=== PATIENT | female | born 1965 | race Caucasian/White ===

== ENCOUNTER → 2016-07-11 | Outpatient (CLI) | payer BC ==
--- NOTE | 2016-07-11 18:28 | DI ---
HISTORY: Metromenorrhagia. TECHNIQUE: Sonographic images of the pelvis were obtained and submitted for interpretation. FINDINGS: The uterus measures 11.2 x 6.6 x 5.4 cm. The endometrium measures 13 mm in thickness. Th ere are nabothian cysts noted. The left ovary measures 2.0 x 2.8 x 3.0 cm. Normal arterial waveforms are noted within the left ovar y. There is a cystic-appearing lesion reminiscent of a follicle. There is a 3.7 x 1.5 x 3.5 cm hypoechoic lesion in the anterior wall of the uterus, that is suggestiv e of a fibroid. A right ovarian cyst is noted on the transabdominal exam. The right ovary measures 4.7 x 3.1 x 3.3 c m. However, on the transvaginal exam, this is not visualized. On the technology notes, normal arter ial waveforms are noted within the right ovary. IMPRESSION: 1. Nabothian cysts. 2. Right ovarian cyst noted on the transvaginal portion of the examination but not seen on the transv aginal exam.
== END ==
LOC: US 14:41
PROVIDERS: ATTEND Nurse Practitioner Family
DX: N92.1 Excessive and frequent menstruation with irregular cycle (principal); N83.291 Other ovarian cyst, right side; N88.8 Other specified noninflammatory disorders of cervix uteri
CPT/HCPCS: 76830; 76856

== ENCOUNTER → 2016-07-23 | Outpatient (CLI) | payer BC ==
[2016-07-23 17:14] LABS: BILIRUBIN,URINE NEGATIVE (NEG); CLARITY,URINE CLEAR (CLEAR); GLUCOSE, URINE (UA) NEGATIVE (NEG); LEUKOCYTE ESTERASE ,URINE SMALL (NEG); NITRATE,URINE POSITIVE (NEG); OCCULT BLOOD,URINE Trace-intact (NEG); PH,URINE 6.5 (5.0-8.5); PROTEIN,URINE NEGATIVE (NEG); UROBILINOGEN,URINE 0.2 mg/dL (0.2)
[2016-07-23 17:44] LABS: URINE SAMPLE TYPE VOIDED SPECIMEN
[2016-07-23 17:45] LABS: BACTERIA,URINE MANY
== END ==
LOC: MOB LAB 16:41
PROVIDERS: ATTEND Obstetrics & Gynecology
DX: R30.0 Dysuria (principal)
CPT/HCPCS: 81001; 87077; 87088; 87186

== ENCOUNTER → 2016-07-24 | Outpatient (CLI) | payer BC ==
--- NOTE | 2016-07-24 15:43 | DI ---
PELVIC ULTRASOUND, 07/24/2016 2:51 PM Clinical History: Cysts of both ovaries not well demonstrated on a previous study. Menorrhagia. Previous Exam: 07/11/2016. Both a transvaginal and transabdominal study was performed. Technique: Transabdominal scans are performed. The uterus is visualized and there is marked thickening of the endometrial stripe. It measures at amado st 25 mm in thickness. Both ovaries are well visualized. The right ovary measures 30 x 55 x 40 mm in snyzotiurv-VS-wzyloyvlnwvn measurements. There is a spherical simple cyst present that measures 25 mm in diameter. The left ovary is smaller and measures approximately 15 x 11 x 25 mm in vmvgujjyvl-DI-z ongitudinal measurements. The left ovarian cyst measures approximately 10 mm in diameter. There are n o fluid collections or masses. Readin. Marked thickening of the central uterine stripe. The central uterine stripe measures 25 mm. 2. Both ovaries are well visualized. There is a 25 mm cyst of the right ovary and a 10 mm cyst of th e left ovary.
== END ==
LOC: US 14:43
PROVIDERS: ATTEND Obstetrics & Gynecology
DX: N83.202 Unspecified ovarian cyst, left side (principal); N83.201 Unspecified ovarian cyst, right side
CPT/HCPCS: 76856

== ENCOUNTER 2016-07-31 07:23 | Observation (INO) | payer BC ==
[~2016-07-31 07:23] MED LIST: Acetaminophen 1000mg Inj 1,000 MG in Premix 1 BAG IV ONE; Acetaminophen 1000mg Inj 100 ML IV ONE; BUPIVACAINE 0.25% W/ EPI - 10 ML VIAL ONE; HYDROmorphone 2 MG/1 ML IVP PRN; LIDOCAINE W/ SODIUM BICARB 0.5 ML SYR ONE; Lactated Ringers 1,000 ML PRIMARY IV SCH; Lactated Ringers 2,000 ML PRIMARY IV ONE; NORMAL SALINE 10 ML SYRINGE FLUSH IVP PRN; ONDANSETRON 4 MG/2 ML VIAL IVP PRN; Ondansetron ODT Tab 8 MG TAB PO PRN; Prochlorperazine Edisylate Inj 10mg/2ml vial IVP PRN; Sodium Chloride 0.9% 100 ML IV ONE; fentaNYL Inj 100 MCG/2 ML VIAL IVP PRN
[2016-07-31] MEDS ORDERED: MIDAZOLAM 5 MG/1 ML ONE (07:26)
[2016-07-31] MEDS ORDERED: LIDOCAINE MPF 2% - 5 ML (20 MG/1 ML) ONE (07:27)
[2016-07-31] MEDS ORDERED: VECURONIUM BROMIDE 10 MG VIAL ONE (07:27)
[2016-07-31] MEDS ORDERED: KETAMINE 100 MG/1 ML - 5 ML ONE (07:27)
[2016-07-31] MEDS ORDERED: Sodium Chloride 0.9% vial 10 ML ONE (07:27)
[2016-07-31] MEDS ORDERED: fentaNYL Inj 250 MCG/5 ML VIAL ONE (07:27)
[2016-07-31] MEDS ORDERED: Opium-Belladonna 60-16.2mg 1 EACH SUPP.RECT RECTAL ONE (07:44)
[2016-07-31 08:07] LABS: BILIRUBIN,URINE SMALL (NEG); CLARITY,URINE CLEAR (CLEAR); GLUCOSE, URINE (UA) NEGATIVE (NEG); LEUKOCYTE ESTERASE ,URINE TRACE (NEG); NITRATE,URINE NEGATIVE (NEG); OCCULT BLOOD,URINE NEGATIVE (NEG); PH,URINE 6.5 (5.0-8.5); PROTEIN,URINE TRACE mg/dl (NEG); UROBILINOGEN,URINE 0.2 mg/dL (0.2)
[2016-07-31 08:10] LABS: URINE SAMPLE TYPE CLEAN CATCH URINE
[2016-07-31 08:17] LABS: HEMATOCRIT 35.1 % (37.0-47.0); HEMOGLOBIN 11.3 g/dL (12.0-16.0); RBC,URINE 0-3 /hpf; SQUAMOUS EPITHELIAL CELL,UR FEW; WBC,URINE 0-3
--- NOTE | 2016-07-31 08:46 | OB.OP.NOTE ---
Operative Report Surgeon: Juan A Tool/Die Maker: Calixto Puckett MD Anesthesia Type: General Anesthesia Provider: Lupis Barclay CRNA Surgery Date: 07/31/16 Preoperative Diagnosis: Menometrorrhagia. Endometrial hyperplasia-simple hyperplasia without atypia. Fibroid uterus. Dysmenorrhea. Bilateral ovarian cysts-simple ovarian cysts. Patient desires definitive management with a hysterectomy and BSO Postoperative Diagnosis: Same Procedure: Exam under anesthesia. Robotic-assisted laparoscopic hysterectomy and bilateral salpingo-oophorectomy. Cystoscopy Estimated Blood Loss (mL): 50 Fluids: 2100 mL LR. 50 mL urine Complications: None apparent Findings at Surgery: Slightly larger fibroid uterus Simple appearing right ovarian cyst about 3-4 cm-no evidence of rupture throughout the surgery and was removed intact Simple appearing left ovarian cyst about 1 cm-no evidence of rupture throughout the surgery and was removed intact The bladder was backfilled using methylene blue and saline and there was no evidence of incidental cystotomy. The bladder was intact and there was no spill of blue fluid A cystoscopy was performed and there was good spill of both ureters into the bladder. There was a good jet stream of urine bilaterally. There was a normal intravesical bubble at the dome of the bladder at cystoscopy. Indications for the Procedure: The patient is a 51-year-old 002 with menometrorrhagia, dysmenorrhea, simple endometrial hyperplasia without atypia, fibroid uterus, bilateral simple ovarian cysts who desires definitive management with hysterectomy and BSO. Description of Procedure: After the risk, benefits, alternatives and indications for a robotic-assisted laparoscopic hysterectomy and bilateral salpingo-oophorectomy and cystoscopy were discussed with the patient in detail, the consent form was signed in the clinic. The day of surgery we discussed the operation again and the patient still desired the surgery and desired definitive management with a hysterectomy and BSO for her menometrorrhagia, simple endometrial hyperplasia without atypia , fibroid uterus, dysmenorrhea, and bilateral simple ovarian cysts. The surgery was again reviewed with the patient. The patient stated that she was ready for the surgery. The patient was brought to the operating room. The patient was placed on the operatory table. The patient underwent general endotracheal anesthesia without complication. The patient was placed in the [facility] in the dorsal lithotomy position. The patient was then prepped and draped sterilely. A timeout was completed to document the proposed surgery and to document the correct patient. Documentation was completed and the procedures were identified and the patient was identified and all agreed. A Russell catheter was placed in the patient's urethra and into the bladder and the balloon was insufflated with fluid. A weighted speculum was placed in the patient's vagina posteriorly and a [place] was placed anteriorly and the cervix was visualized and grasped with a single- tooth tenaculum. The uterus was sounded to 9-1/2 cm. Therefore a 10 cm uterine manipulator tip was requested. With respect to the Donna ring, a medium Donna ring was requested secondary to the size of the cervix. The uterine manipulator was assembled and then the 10 cm tip was placed through the cervical cause and into the endometrial cavity. The balloon was insufflated. I then removed the single-tooth tenaculum and I placed the Donna ring around the cervix and adjusted the uterine manipulator into place. Gloves were then changed. Attention was then turned to the patient's abdomen and an infraumbilical incision was decided upon and this area was injected with local anesthetic. A infraumbilical vertical skin incision about 1-1/2+ centimeters in length was made. Perforating towel clamps were placed on either side of the incision to elevate the abdomen. Under direct visualization using the 8 mm camera, the infraumbilical trocar was placed. The CO2 gas was insufflated into the abdomen and the patient was then placed in steep Trendelenburg. The right lateral port was then placed. The area of placement was identified and a local anesthetic was used and injected into the area and then a 1 cm skin incision was made and then under direct visualization the trocar and sleeve was placed and then the trocar removed. The same was done for the left lateral port. The abdomen was examined including the liver. All appeared normal. There were no unusual appearances of bowel. The uterus was visualized and it was slightly enlarged. The camera was then removed and the robot was positioned into place. The #1 arm was placed on the right lateral port and the camera port was placed in the infraumbilical port and the #2 arm was placed in the left lateral port. The smoke evacuator tubing was hooked up to the right lateral port. The vessel sealer was placed in the #1 arm or right lateral port and the gyrus was placed in the #2 arm or left lateral port. Both instruments were positioned and maneuvered to the fundus of the uterus. I then went over to the Endosee console. Photographs were taken of the uterus and the left ovary with a smaller simple cyst and the right ovary with about a 3 -4 cm simple cyst-appearing cyst. I then identified the right IP and placed the vessel sealer around the IP and cauterized in [address] adjacent to each other and then closer to the ovary I cauterized again and then cut and then I continued to cauterize and cut using the vessel sealer along the mesial salpinx removing both the ovary and the fallopian tube. I was always away from the ureter or it appeared so. I then cauterized and then cut the round ligament. I then continued to skeletonize the vessels along the cervix and cauterized and cut them. I then switched instruments in #1 and #2 ports and I then identified the IP on the left side and cauterized in [address] and then cauterized again closer to the ovary and then cut and then continued to cauterize and cut along the mesial salpinx on the left side removing both the ovary and the fallopian tube on the left side. I was always away from the ureter or at least it appeared so. I then cauterized and then cut the round ligament on the left side and then I continued to skeletonize the vessels along the cervix and cauterized and cut them. Her did to make a bladder flap using the vessel sealer but then exchanged instruments. In the #2 arm I had the gyrus bipolar and in the #1 I had the monopolar scissors. I then created a bladder flap keeping in mind where the Donna ring was anteriorly. I then continued to skeletonize the vessels along the cervix on the right side. A small venous sinus tract was noted and there was a small amount of bleeding but hemostasis was allowed to occur easily. The vessels along the left side of the cervix were skeletonized and keeping in mind where the Donna ring was the vessels were bovied and cut and moved laterally on either side. My PROGRAM THERAPIST partner-Dr. Puckett-actually completed the skeletonization on the left and right side to ensure the vessels were lateral to where we would cut on the Donna ring. The vagina was then incised and the Donna ring was visualized after we insured that the bladder was far away from the incision site. The vagina was circumferentially incised using the monopolar scissors. After the 360 incision the uterus, fallopian tubes, and bilateral ovaries with the ovarian cyst intact were removed through the vagina. It should be noted that at no time did we believe that we were close to the bowel or close to the bladder using the vessel sealer or gyrus or monopolar scissors. The uterus, tubes and ovaries was handed off to the container to the operating room nurse. The suction differential tester was then placed in the #1 port. Small amount of blood was suctioned and then irrigation was used and suctioned again. Looped 0-V lock suture was then used to close the vaginal cuff starting on the patient's left side and ensuring that the bladder was not close to the vaginal cuff suture and ensuring that vaginal mucosa and then peritoneum was grasped posteriorly the first suture was placed and then the needle was placed through the looped V lock suture. Then in a continuous suturing method the V lock suture closed the anterior and posterior vaginal cuff ensuring that vaginal mucosa was obtained anteriorly and posteriorly and peritoneum was obtained posteriorly. The suture was continued to the right angle of the vaginal cuff and then brought back several sutures and then the suture was cut. The needle was placed in the anterior peritoneum to be removed later. The ureters were both visualized from the abdominal cavity and both appeared to be peristalsing. I did backfill the bladder using ethylene blue and saline and placed about 200+ cc in the bladder and the bladder filled up that there was no leak. This was just completed to be thorough after the surgery. The bladder was then drained of this backfill. The Russell catheter was then removed. Xylocaine was placed in the patient's urethra for the cystoscopy later. The vaginal cuff appeared to be hemostatic. A few areas were suctioned of some diluted blood with irrigation after the irrigation previously. The cuff was then examined again and appeared to be hemostatic. The IP ligaments bilaterally appeared to be hemostatic. The robotic assistance of this surgery was then completed. The robot was disconnected from the 3 ports. The robot was then moved out of the operatory field. Gloves and gowns were changed after alcohol was used to clean her hands again. The scope was placed in one of the lateral ports and instrument was placed in the infraumbilical port to remove the needle was remaining suture. This was done in an uncomplicated fashion. The vaginal cuff from the laparoscopic side was examined again and there was good hemostasis. The CO2 gas was allowed to escape from the abdomen and then the 3 ports were removed. The infraumbilical fascia was identified and closed with an 0 Vicryl suture on a UR 6 needle after grasping the fascia with a small Yulia on either side. The 0 Vicryl suture was then tied and there was good closure of the fascia. Cokers were already removed by this time. The subcutaneous tissue of the 3 ports sized was closed with 4-0 Monocryl suture and then the skin was closed with 3-0 Stratafix suture subcuticularly. A cystoscopy was performed. Both the right and the left ureters were identified. There was good spill from both ureters into the bladder. At the dome of the bladder there was a good bubble signifying that the latter was intact. The cystoscopy was completed and the bladder was drained of any fluid for the cystoscopy. The patient was then awakened from her general endotracheal anesthesia and was in stable condition was brought to the PACU. Sponge lap and needle counts were correct 2. Plan: I will admit the patient for 23 observation. The patient's uterus, tubes, and ovaries with bilateral ovarian cysts will be sent to pathology.
[2016-07-31] MEDS: LIDOCAINE HCL 2 % 10 ML JELLY URO-JECT TOPICAL ONE ×2 (09:54→10:45)
[2016-07-31] MEDS ORDERED: NEOSTIGMINE 1 MG/1 ML - 10 ML ONE (10:28)
[2016-07-31] MEDS ORDERED: DEXAMETHASONE PF 10 MG/1 ML VIAL ONE (10:28)
[2016-07-31] MEDS ORDERED: GLYCOPYRROLATE 0.2 MG/1 ML VIAL ONE ×2 (10:28→10:58)
[2016-07-31] MEDS ORDERED: KETOROLAC 30 MG/1 ML VIAL ONE (10:37)
[2016-07-31] MEDS ORDERED: METHYLENE BLUE 10 MG/1 ML - 1 ML ONE (10:42)
[2016-07-31] MEDS ORDERED: NORMAL SALINE 10 ML SYRINGE FLUSH IVP PRN (11:27)
[2016-07-31] MEDS ORDERED: Ondansetron ODT Tab 8 MG TAB PO PRN (11:27)
[2016-07-31] MEDS ORDERED: KETOROLAC 30 MG/1 ML VIAL IVP PRN (11:27)
[2016-07-31] MEDS ORDERED: Promethazine Tab 25 MG TAB PO PRN (12:14)
[2016-07-31] MEDS ORDERED: SODIUM CL 0.9% FOR INH 3 ML NEB NEB ONE (14:22)
[2016-07-31] MEDS ORDERED: FLUORESCEIN 1 MG EYE STRIP ONE (14:23)
[2016-07-31] MEDS ORDERED: TETRACAINE 0.5% - 2 ML EYE DROPS ONE (14:23)
[2016-07-31] MEDS: HYDROcodone-APAP 7.5 MG-325 MG TABLET PO PRN ×3 (15:21→23:49)
[2016-07-31] MEDS: GATIFLOXACIN 0.5% LEFT EYE PRN ×4 (15:29→23:50)
[2016-07-31] MEDS: Non-Formulary Drug LEFT EYE PRN ×2 (19:00→23:51)
[2016-07-31] MEDS: DOCUSATE 100 MG CAPSULE PO SCH (20:04)
[2016-07-31] MEDS: Sertraline Tab 50 MG TAB PO SCH (20:04)
[2016-08-01] MEDS: IBUPROFEN 800 MG TABLET PO PRN ×2 (04:12→12:10)
[2016-08-01] MEDS: Non-Formulary Drug LEFT EYE PRN (04:13)
[2016-08-01] MEDS: GATIFLOXACIN 0.5% LEFT EYE PRN ×2 (04:13→09:26)
[2016-08-01 05:09] LABS: BASOPHILS # (AUTO) 0.01 10*3/UL; BASOPHILS % (AUTO) 0.1 % (0-1); EOSINOPHILS % (AUTO) 0 % (0-8); HEMATOCRIT 32.6 % (37.0-47.0); HEMOGLOBIN 10.4 g/dL (12.0-16.0); IMM GRAN % (AUTO) 0.2 % (0-5); IMM GRAN# (AUTO) 0.02 10*3/UL; LYMPHOCYTES # (AUTO) 1.12 10*3/uL; MEAN CORPUSCULAR HGB CONC 31.9 g/dL (33-37); MEAN PLATELET VOLUME 8.6 FL (7.4-12.2); MONOCYTES # (AUTO) 0.74 10*3/UL (0.3-0.8); MONOCYTES % (AUTO) 8.6 % (5-15); NEUTROPHILS # (AUTO) 6.72 10*3/UL; NEUTROPHILS % (AUTO) 78.1 % (50-80); PLATELET MORPHOLOGY COMMENT NORMAL MORPHOLOGY (NORM); RDW COEFFICIENT OF VARIATION 14.9 % (11.5-14.5); RED BLOOD COUNT 3.59 10^6/uL (4.20-5.40); WHITE BLOOD COUNT 8.61 10^3/uL (4.8-10.8)
[2016-08-01 05:12] LABS: BLOOD UREA NITROGEN 9 mg/dL (7-22); BUN/CREATININE RATIO 11.25 (6-20); CALCIUM 8.7 mg/dL (8.7-10.7); CHLORIDE 106 meq/L (98-112); CREATININE 0.8 mg/dL (0.50-1.20); EST GLOMERULAR FILTRATION > 60 (>60 ml/min/1.73m(2)); GLUCOSE 121 mg/dL (78-110); POTASSIUM 4.4 meq/L (3.8-5.2); SODIUM 137 meq/L (135-145)
[2016-08-01] MEDS ORDERED: LEVOTHYROXINE 25 MCG TABLET PO SCH (06:30)
[2016-08-01 07:15] VITALS: RESP 20; TEMP 98.7
[2016-08-01] MEDS ORDERED: [UNRECOGNIZED DRUG - OTHER] LEFT EYE PRN (08:04)
[2016-08-01] MEDS ORDERED: GATIFLOXACIN 0.5% LEFT EYE SCH (09:00)
--- NOTE | 2016-08-01 09:13 | CRNA.PROGR ---
Anesthesia Note Anesthesia Progress Note: Resting in bed. She states no pain. Questioned regarding corneal abrasion discomfort she states that as of 430 this am there has been none. No nausea. Denies abdominal pain. She questioned me regarding the lesion visualized at the base of her tongue during laryngoscopy. ( Lesion between 0.5 and 1 cm in size ) Appears solid. There are vessels visible on the outside of the lesion. Pt states she has had an intermittant sore throat recently. Recommended that she see an ENT Physician in the near future. Laboratory Results 08/01/16 Range/Units 04:36 WBC 8.61 (4.8-10.8) 10^3/uL RBC 3.59 L (4.20-5.40) 10^6/uL Hgb 10.4 L (12.0-16.0) g/dL Hct 32.6 L (37.0-47.0) % MCV 90.8 (81-99) FL MCH 29.0 (27-31) PG MCHC 31.9 L (33-37) g/dL RDW Std Deviation 47.2 (39-50) fL RDW Coeff of Jeri 14.9 H (11.5-14.5) % Plt Count 536 H (140-350) 10*3/uL MPV 8.6 (7.4-12.2) FL Immature Gran % (Auto) 0.2 (0-5) % Neut % (Auto) 78.1 (50-80) % Lymph % (Auto) 13.0 (10-50) % Sutton % (Auto) 8.6 (5-15) % Eos % (Auto) 0 (0-8) % Baso % (Auto) 0.1 (0-1) % Immature Gran # (Auto) 0.02 10*3/UL Neut # (Auto) 6.72 10*3/UL Lymph # (Auto) 1.12 10*3/uL Sutton # (Auto) 0.74 (0.3-0.8) 10*3/UL Eos # (Auto) 0 10*3/UL Baso # (Auto) 0.01 10*3/UL WBC Morphology Comment Normal morphology (NORM) Plt Morphology Comment Normal morphology (NORM) RBC Morph Comment Normal morphology (NORM) Sodium 137 (135-145) meq/L Potassium 4.4 (3.8-5.2) meq/L Chloride 106 (98-112) meq/L Carbon Dioxide 21 L (23-33) meq/L Anion Gap 10 (5-20) BUN 9 (7-22) mg/dL Creatinine 0.8 (0.50-1.20) mg/dL Estimated GFR > 60 (>60 ml/min/1.73m(2)) BUN/Creatinine Ratio 11.25 (6-20) Glucose 121 H (78-110) mg/dL Calculated Osmolality 283.0 (267-292) mOsm/kg Calcium 8.7 (8.7-10.7) mg/dL Patient and her verbalized their pleasure with her care.
[2016-08-01] MEDS: DOCUSATE 100 MG CAPSULE PO SCH (09:26)
[2016-08-01] MEDS: Sertraline Tab 50 MG TAB PO SCH (09:26)
--- NOTE | 2016-08-01 09:32 | PDOC(PROG) ---
Subjective Post Op Day: 1 Pain Management: PO Russell Catheter: No Flatus: Yes Diet: Regular Ambulating: Yes Concerns / Additional Information: The patient's biggest concern postop was she had some pain in her left eye and she was diagnosed with a corneal abrasion. The patient was given antibiotic drops and artificial tears lubricant and the lubricant helped her eye to feel better. With respect to the hysterectomy, the patient states she has minimal pain in her abdomen. She did take some hydrocodone but this morning she took ibuprofen. She has passed flatus. She did eat some regular food. The patient feels well and would like to go home. Objective - General General Appearance: POSITIVE: No Acute Distress, Cooperative - Cardiovacular Cardiovascular Exam: POSITIVE: RRR Edema: No Pedal Edema Extremities: Negative Harry's - Bilaterally - Respiratory Respiratory Exam: POSITIVE: Clear to Auscultation - Bilaterally - Abdomen Bowel Sounds: Hypoactive (But present) Abdominal Wound Assessment: Well Approximated, Asymptomatic, Clean/Dry Other Abdominal Exam Details: Soft and nontender without distention. No guarding or rebound Assesstment / Plan Assessment / Plan: Assessment: Postoperative day #1 status post robotic-assisted laparoscopic hysterectomy and BSO. Pathology is pending. Corneal abrasion-OS. Patient states that she feels much better this morning with regards to her eye pain. She took the patch off her eye this morning around 0400 hrs. The patient also has a 1 cm nodule on her posterior tongue that was diagnosed at the time of intubation. The patient will need evaluation by ENT Plan: Discharge home today Ambulate as needed The patient will need a follow-up consult with ENT with regards to the 1 cm nodule on the posterior tongue With regards to the corneal abrasion, the patient should continue the gatifloxacin eyedrops 12 drops 3-4 times a day for a total of 5 days Artificial tears lubricant as needed and daily at bedtime for the next 3 nights The patient should follow-up with her fare register repairer to ensure complete healing of the corneal abrasion. No contacts until she sees her fare register repairer Ibuprofen 800 mg 1 by mouth 3 times a day with food or milk Hydrocodone/Tylenol 5/325 1-2 by mouth every 6 hours when necessary pain Colace 100 mg 1 by mouth twice a day when necessary constipation. The patient may restart all of her outpatient medications The patient should follow-up with me on 05 August at 1530 hrs. in the afternoon for an incision check and suture removal The patient should follow-up with me for a postop visit in 6-8 weeks The patient should have pelvic rest with no intercourse for at least 8 weeks postoperatively The patient will be given the usual postoperative precautions. The patient should still a little bit better or at least the same every day. If the patient feels worse or has increasing pain then the patient should alert us to those symptoms.
== END 2016-08-01 12:16 | disposition home or self-care (01) ==
LOC: SDSC 07:23 → MED/SURG 11:28
PROVIDERS: ADMIT Obstetrics & Gynecology; ATTEND Obstetrics & Gynecology
DX: N92.1 Excessive and frequent menstruation with irregular cycle (principal); N85.00 Endometrial hyperplasia, unspecified; D25.9 Leiomyoma of uterus, unspecified; N94.6 Dysmenorrhea, unspecified; N83.202 Unspecified ovarian cyst, left side; N83.201 Unspecified ovarian cyst, right side
CPT/HCPCS: 36415; 58552; 80048; 81001; 84703; 85014; 85018; 85025; 94761; A4216; J0131; J0694; J1885; J2704; J3010; Q0162; A9541; J1100; J2001; J2250; J2710; J7050; J7120

== ENCOUNTER 2016-11-25 13:33 | Emergency (ER) | payer BC ==
[2016-11-25] MEDS ORDERED: HYDROcodone-APAP 5 MG -325 MG TABLET PO ONE (13:41)
--- NOTE | 2016-11-25 13:54 | PDOC ---
Fall HPI - General Chief Complaint: Fall Stated Complaint: FALL WITH INJURIES Date Seen by Provider: 11/25/16 Time Seen by Provider: 13:49 Source: POSITIVE: Patient, Spouse Exam Limitations: POSITIVE: No limitations Nurse's Notes Reviewed & Considered: Yes - History of Present Illness Initial Comments: Patient comes in today with chief complaint of ankle and wrist pain on the right side. 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 This resulted in pain in the right thumb base as well as the right fifth finger, swelling and tenderness of her right ankle, bruising about the right orbit. She denies any loss of consciousness. No nausea vomiting or diarrhea. No hematuria or dysuria. No chest pain or shortness of breath. Have you received a tetanus shot in the past 10 years?: Unknown Body Location Affected: REPORTS: Upper Extremity (R), Lower Extremity (R), Face Timing: REPORTS: Abrupt Duration: 1/2 hour Severity: Moderate Context of Fall: REPORTS: Tripped Location of Fall: REPORTS: School Quality: REPORTS: "Pain", Sharpness, Throbbing Associated Symptoms: REPORTS: Recalls Injury, Recalls Coming to ER, Blow to Head Location of Injuries / Pain: REPORTS: Right, Face, Hand, Foot Any Prior Injuries Related to Current Complaint?: No - Patient Home Medications Home Medications: Home Medications Aspirin 1 tab ORAL QD tab 06/24/12 Multivitamin [Daily Vitamin] 1 tab PO QD tab 01/02/14 Ascorbic Acid [Vitamin C] 1 tab PO QD tab 01/25/15 Calcium Carbonate [Calci-Chew] 1 tab PO QD tab 01/25/15 Cholecalciferol (Vitamin D3) [Vitamin D3] 1 cap PO QD cap 01/25/15 Thermal-3 Fatty Acids [Fish Oil] 1 cap PO QD cap 01/25/15 Levothyroxine Sodium 1 tab PO DAILY #30 tab 01/17/16 Sertraline HCl [Zoloft] 1 tab PO QD #30 tab 01/17/16 Tolterodine Tartrate [Detrol LA] 1 cap PO DAILY #30 cap 04/02/16 - Patient Allergies Allergies/Adverse Reactions: Allergies Allergy/AdvReac Type Severity Reaction Status Date / Time No Known Allergies Allergy Verified 11/25/16 13:39 Past Medical History - heen HEENT History: Denies History Cardiovascular History: Denies History Respiratory History: Denies History Gastrointestinal History: Denies History Genitourinary History: Denies History Endocrine History: Hypothyroidism Musculoskeletal History: Denies History Prosthesis or Implant: No Neurological History: Denies History Blood Disorders: Denies History Psychiatric History: Anxiety Disorders History of Sexually Transmitted Diseases: No Cancer History: Denies History History of MDRO: No History of Other Communicable Diseases: No Alcohol Use: None Substance Use Type: None Previous Surgical History: Yes Type / Date of Surgery: COLONOSCOPY Anesthesia Reactions: No Malignant Hyperthermia: No Significant Family History: No pertinent family hx, Cancer, Vascular disease Additional Family History: PARKINSON'S DISEASE ROS - Limitations ROS Limitations: No Limitations Constitution: REPORTS: Denies Symptoms Cardiovascular: REPORTS: Denies Cardiac Symptoms Respiratory: REPORTS: Denies Resp Symptoms Neurological: REPORTS: Denies Neuro Symptoms Gastrointestinal: REPORTS: Denies GI Symptoms Endocrine: REPORTS: Denies Symptoms Musculoskeletal: REPORTS: Joint Pain Genitourinary: REPORTS: Denies Symptoms Eyes: REPORTS: Denies Symptoms ENT: REPORTS: Denies Symptoms Skin: REPORTS: Denies Skin Symptoms Lympathic: REPORTS: Denies Lympathic Symptoms Immunologic: POSITIVE: Denies Symptoms Psychiatric: POSITIVE: Denies Psych Symptoms Fall Physical Exam - General Appearance General Appearance: POSITIVE: Alert, Cooperative, No Acute Distress, Mild Distress - HEENT HEENT: POSITIVE: Eyes Inspection Nml, Ears Inspection Nml, Nose Inspection Nml, Oral/Dental Inspect. Nml, Pharynx Inspect. Nml, PERRL, EOMI, Other (Bruising around the right orbit.) - Pupil Size Pupil Size: 5 mm: Bilateral - Neck Neck: POSITIVE: Non Tender, Painless ROM, Trachea Midline - Respiratory / CVS Respiratory / CVS: POSITIVE: Chest Non Tender, No Ecchymosis, Breath Sounds Normal, No Respiratory Distress, Heart Sounds Normal, Regular Rate/Rhythm - Abdomen Abdomen: Soft: (All Quadrants), Normal Bowel Sounds: (All Quadrants), Denies Tenderness: (All Quadrants) - Neuro / Psych Neuro / Psych: POSITIVE: Oriented X3, tube trailer filler Normal As Tested, Motor Normal, Sensation Normal, Mood Appropriate, Affect Appropriate - Skin Skin: POSITIVE: Intact, Warm, Dry - Back Back: POSITIVE: Normal Inspection, No CVA Tenderness, Non Tender, Painless ROM - Extremities Extremity Assessment: Non-Tender: (LLE), (LUE), Normal ROM: (LUE), (LLE), No Edema: (LLE), (LUE), (RUE), No Swelling: (RUE), (LUE), (LLE), Pelvis Stable: ( ALL), Tender: (RLE), (RUE), Swelling: (RLE), Abrasion: (RUE), Avulsion: (RUE) ( right fifth finger distal tip) Joint Exam: POSITIVE: Limited ROM, Painful (Bruising and swelling around the right lateral malleolus) Procedures - Laceration/Wound Repair Did patient have a laceration repair: No Fall Progress - Results Reviewed by me Xrays/CTs/US Reviewed by me: Yes Discussed with Radiologist: No - Patient's Progress Pain Medication Addressed: POSITIVE: Yes Re-Examine Time:: 14:33 Status: POSITIVE: Improved MDM / ED Course: Patient was examined, she received a Coolidge 5/325 tablets, and radiographic examinations were obtained. Findings: Per my interpretation x-rays of her ankle and hand on the right side show no acute osseous abnormalities. Assessment: Contusions and sprained ankle status post fall next Plan: Discharge home wrist brace, bear weight as tolerated, Coolidge prescribed. Follow-up in 7-10 days if there is no improvement. Patient Care Time - Estimated PCT Patient Care Time (In Minutes): 15 Vital Signs - VS Reviewed Vital Signs Reviewed: Yes Discharge Clinical Impression: Bruising, Sprain of ankle Discharge Disposition: Discharged to Home Condition: Good Patient Instructions Given at Discharge: Contusion in Adults (ED), Ankle Sprain (ED)
[2016-11-25] MEDS ORDERED: DIPH,PERTUSS,TET(ADACEL) VAC/PF 0.5 ML (Tdap) IM ONE (14:01)
[2016-11-25 15:02] VITALS: RESP 18; TEMP 97.1
--- NOTE | 2016-11-25 15:32 | DI ---
RIGHT ANKLE, 11/25/2016 1:49 PM: Clinical History: Injury. The patient fell. Previous Exam: 08/09/2012. 3 views are submitted. There is soft tissue swelling over the lateral malleolus. No acute fracture or dislocation is identified. There is a lucency through the lateral malleolus on the mortise view and this is related to a previous fracture that was evident on the prior exam. Reading: No acute fracture or dislocation is identified. The lucencies visible in the lateral malleolus on the oblique projection are related to an old fracture.
--- NOTE | 2016-11-25 15:33 | DI ---
RIGHT HAND, 11/25/2016 1:49 PM: Clinical History: Injury. The patient fell. Previous Exam: None at this facility. 3 views are submitted. There is no acute soft tissue, osseous, or joint abnormality. Reading: Normal right hand exam.
== END 2016-11-25 14:55 | disposition home or self-care (01) ==
LOC: ER 13:33
DX: S93.401A Sprain of unspecified ligament of right ankle, initial encounter (principal); S00.11XA Contusion of right eyelid and periocular area, initial encounter; M25.531 Pain in right wrist; W01.198A Fall on same level from slipping, tripping and stumbling with subsequent striking against other object, initial encounter; Y92.480 Sidewalk as the place of occurrence of the external cause; Y99.0 Civilian activity done for income or pay
CPT/HCPCS: 73130; 73610; 90471; 99283